=== PATIENT | female | born 1955 | race American Indian/Alaskan Native ===

== ENCOUNTER 2018-02-22 08:37 | Outpatient (CLI) | payer BC ==
[2018-02-22] MEDS ORDERED: LASIX IV NR (09:22)
[2018-02-22 10:16] VITALS: BP 122/90
--- NOTE | 2018-02-22 12:07 | Nuclear Medicine Report ---
NUCLEAR MEDICINE RENAL SCAN CAPTOPRIL/LASIX HISTORY: Hematuria FINDINGS: Correlation is made with the CT abdomen pelvis dated 01/19/18. The posterior flow images demonstrate normal flow to the right kidney and markedly decreased flow to the left kidney. The posterior function images demonstrate normal uptake and excretion of the radiotracer in the right kidney. There is decreased/delayed uptake of the radiotracer in the left kidney with a blunted excretory curve on the renogram images. Administration of 20 mg of IV Lasix at 21 minutes has no effect. Split function measures 80% right kidney and 20% left kidney. IMPRESSION: Normal function of the right kidney. Decreased flow and function of the left kidney with no response to Lasix. Split function measures 80% right kidney and 20% left kidney.
== END 2018-02-22 08:38 | disposition home or self-care (01) ==
LOC: NM 08:37
PROVIDERS: ATTEND Urology
DX: N28.89 Other specified disorders of kidney and ureter (principal); I10 Essential (primary) hypertension
CPT/HCPCS: 78708; A9562; J1940

== ENCOUNTER 2018-03-11 07:28 | Day surgery (SDC) | payer BC ==
[2018-03-11] MEDS ORDERED: DILAUDID IV PRN (08:29)
--- NOTE | 2018-03-11 08:29 | Anesthesia Consultation ---
Anesthesia Consult and Med Hx Date of service: 03/11/18 - Airway Anesthetic Teeth Evaluation: Poor ROM Head & Neck: Adequate Mental/Hyoid Distance: Adequate Mallampati Class: Class I Intubation Access Assessment: Good - Pulmonary Exam CTA: Yes - Cardiac Exam Cardiac Exam: RRR - Pre-Operative Health Status ASA Pre-Surgery Classification: ASA2 Proposed Anesthetic Plan: General (htn, former smoker) - Pulmonary Hx Smoking: No Hx Asthma: No COPD: No Hx Pneumonia: Yes (LEFT SIDED 12/2017- RESOLVED) Hx Sleep Apnea: No (SHERRI PRE SCREEN LOW RISK) - Cardiovascular System Hx Hypertension: Yes (X 20 YRS) Hx Pacemaker: No Hx Internal Defibrillator: No - Central Nervous System Hx Back Pain: Yes (FROM UTI) Hx Psychiatric Problems: No - Endocrine Hx Renal Disease: Yes (? LEFT RENAL ABCESS) Hx End Stage Renal Disease: No - Other Systems Hx Cancer: No
--- NOTE | 2018-03-11 08:29 | Anesthesia Day of Surgery ---
Anesthesia Day of Surgery - Day of Surgery Patient Examined: Yes Patient H&P Reviewed: Yes Patient is NPO: Yes
[2018-03-11] MEDS ORDERED: LACTATED RINGERS 1,000 ML IV SCH (09:00)
[2018-03-11] MEDS ORDERED: SUBLIMAZE ONE ×2 (09:06)
[2018-03-11] MEDS ORDERED: DIPRIVAN 10 MG/ML IV ONE (09:07)
[2018-03-11] MEDS ORDERED: PROVENTIL IH PRN (09:14)
[2018-03-11 09:34] LABS: Hematocrit 40.2 % (30.3-42.9); Hemoglobin 13.3 gm/dl (10.1-14.3); Mean Corpuscular HGB Conc 33 % (30-34); Mean Corpuscular Volume 83 fl (79-97); Platelet Count 354 K/mm3 (140-440); Red Blood Count 4.83 M/mm3 (3.65-5.03); Red Cell Distribution Width 15.8 % (13.2-15.2)
[2018-03-11] MEDS ORDERED: ANCEF/STERILE WATER 2 GM/20 ML IV NR (10:00)
[2018-03-11 10:18] LABS: Basophils % (Manual) 0 % (0.0-1.8); Total Cells Counted 100
[2018-03-11 10:21] LABS: Anisocytosis 1+
[2018-03-11 10:22] LABS: Platelet Estimate Consistent w Auto
[2018-03-11] MEDS ORDERED: WATER FOR IRRIG STERILE IR ONE (10:30)
--- NOTE | 2018-03-11 10:44 | Post Operative Note ---
Date of procedure: 03/11/18 Pre-op diagnosis: l hydro Post-op diagnosis: same Findings: narrow ureter Procedure: cysto ureteroscopy stent Anesthesia: MIKAA Surgeon: MADALYN OAKLEY Estimated blood loss: none Pathology: none Condition: stable Disposition: PACU
--- NOTE | 2018-03-11 10:45 | Discharge Summary ---
Short Stay Discharge Plan Activity: other (no straining ) Weight Bearing Status: Weight Bear as Tolerated Diet: low fat, low cholesterol, low salt Special Instructions: other (inc fluids ) Durable Medical Equipment Needed Upon Discharge: other (has stent ) Follow up with: MADALYN OAKLEY MD [Staff Physician] - 7 Days
[2018-03-11 11:19] VITALS: BP 113/74
--- NOTE | 2018-03-11 12:43 | Operative Report ---
PREOPERATIVE DIAGNOSES: Left hydronephrosis, left ureteral obstruction, previous sepsis and pyonephrosis. POSTOPERATIVE DIAGNOSIS: Narrowed mid ureter. PROCEDURE: Cystoscopy, retrograde, left ureteroscopy. SURGEON: Hayes Loomis MD ANESTHESIA: General. FINDINGS: This is a woman who presented with sepsis. The ureter was kinked. There was a questionable filling defect. She now presents for cystoscopy. DESCRIPTION OF PROCEDURE: The patient brought to the operating room and placed on the operating table. Following induction of anesthesia, she was placed in lithotomy position, and prepped and draped in usual sterile fashion. Cystourethroscopy revealed a stent, which was extracted from the meatus. A wire coiled in the kidney and the second safety wire coiled up in the kidney with this double lumen catheter. At this point, flexible ureteroscopy showed the narrowing. We had to manipulate through it in the mid ureter. The ureter once again straightened out. The rest of the kidney was mildly dilated in the central aspect of the renal pelvis, but the calices were preserved. The kidney is small and has 20% function. The patient tolerated the procedure well. A 7-Polish double-J coiled in the kidney and brought to recovery in stable condition. JOB# [id number] CHAPIN/LAVELLE
--- NOTE | 2018-03-11 16:01 | Post Anesthesia Evaluation ---
- Post Anesthesia Evaluation Patient Participated: Yes Airway Patent: Yes Stable Respiratory Function: Yes Nausea/Vomiting: No Temp > 96.8F: Yes Pain Manageable: Yes Adequeate Hydration: Yes Anesthesia Complications: No
--- NOTE | 2018-03-12 07:49 | Fluoroscopy Report ---
FLUOROSCOPY RETROGRADE UROGRAPHY: HISTORY: Hydronephrosis. FINDINGS: Fluoroscopy was provided by radiology during retrograde urography by the urologist. 6 fluoroscopic images were captured. [employer] Field Technician film of the abdomen demonstrates a left ureteral stent in adequate position. Left ureteroscopy was performed per the procedural note. No stones or filling defects were detected. Retrograde administration of contrast agent suggests obstruction near the left ureteropelvic junction. The left ureteral stent was replaced and adequately drains the collecting system on the final image. Please correlate with the procedural report. No images of the right retrograde pyelogram were saved. IMPRESSION: Left ureteral stent placement. No left ureteral stone were noted. See above.
== END 2018-03-11 12:10 | disposition home or self-care (01) ==
LOC: OR 07:28
PROVIDERS: ATTEND Urology
DX: N13.6 Pyonephrosis (principal); A41.9 Sepsis, unspecified organism; I10 Essential (primary) hypertension; E78.00 Pure hypercholesterolemia, unspecified; K21.9 Gastro-esophageal reflux disease without esophagitis; Z79.82 Long term (current) use of aspirin; Z79.899 Other long term (current) drug therapy; Z87.891 Personal history of nicotine dependence; Z98.890 Other specified postprocedural states
CPT/HCPCS: 36415; 52351; 74420; 82803; 85007; 85025; A4217; C1769; C2617; J2704; J3010; J7120; Q9967